=== PATIENT | male | born 1950 | race Caucasian/White ===

== ENCOUNTER 2019-02-01 13:32 | Emergency (ER) | payer MEDICARE, OTHER ==
[~2019-02-01] VITALS: Ht 182.9 cm; Wt 115.0 kg
[2019-02-01] MEDS ORDERED: LISI1TAB3 PO (13:49)
[2019-02-01] MEDS ORDERED: FINA5TAB4 PO (13:49)
[2019-02-01] MEDS ORDERED: ATOR-2 PO (13:49)
[2019-02-01] MEDS ORDERED: ASPI-496 PO (13:49)
[2019-02-01] MEDS ORDERED: AMOX-291 PO (13:49)
[2019-02-01] MEDS ORDERED: METF500T17 PO (13:49)
[2019-02-01] MEDS ORDERED: TAMS-11 PO (13:49)
--- NOTE | 2019-02-01 13:53 | NUR ---
PT TO ED FOR RLQ PAIN AND R TESTICLE ENLARGEMENT AND PAIN SINCE YESTERDAY. CONNECTED TO MONITORS. VSS. PA ASSESSMETN COMPLETE. AWAITING ORDERS. NO NEEDS AT THIS TIME. [facility]
[2019-02-01] MEDS ORDERED: SODIUM CHLORIDE FLUSH 10ML SYR IVF ONE (14:00)
[2019-02-01 14:09] LABS: BASOPHILS # (AUTO) 0.03 x10^3/uL (0-0.1); BASOPHILS % (AUTO) 0 % (0-1); EOSINOPHILS # (AUTO) 0.06 x10^3/uL (0-0.4); EOSINOPHILS % (AUTO) 1 % (1-7); LYMPHOCYTES # (AUTO) 2.05 x10^3/uL (1-3.4); LYMPHOCYTES % (AUTO) 25 % (22-44); MD NO; MEAN CORPUSCULAR HGB CONC 34.1 g/dL (33.2-36.2); MEAN CORPUSCULAR VOLUME 87.8 fL (81-97); MEAN PLATELET VOLUME 8.7 fL (7.4-10.4); MONOCYTES # (AUTO) 0.72 x10^3/uL (0.2-0.8); MONOCYTES % (AUTO) 9 % (2-9); NEUTROPHILS % (AUTO) 66 % (42-75); PLATELET COUNT 229 x10^3/uL (130-400); RED BLOOD COUNT 5.57 x10^6/uL (4.38-5.82); RED CELL DISTRIBUTION WIDTH 13.2 % (9.4-14.8)
[2019-02-01 14:19] LABS: ALBUMIN 3.6 g/dL (3.4-5.0); ANION GAP 9 mmol/L (5-15); CALCIUM 9.2 mg/dL (8.5-10.1); CHLORIDE 107 mmol/L (98-107); CREATININE 0.95 mg/dL (0.7-1.3)
--- NOTE | 2019-02-01 14:30 | NUR ---
seo catheter in place upon arrival. ua collected from bag and sent. pt resting in room with at bedside. call light within reach. no needs at this time. awaiting ct.
[2019-02-01 14:49] LABS: CULTURE INDICATED? NO; MICROSCOPIC NOT IND
--- NOTE | 2019-02-01 16:52 | NUR ---
ALL RESULTS BACK AT THIS TIME. VSS. CALL LIGHT WITHIN REACH. NO NEEDS EXPRESSED. CHART UP FOR RECHECK.
[2019-02-01 16:53] VITALS: BP 106/52
[2019-02-01] MEDS ORDERED: OMNIPAQUE 350 MG/ML, 150 ML BOTTLE ONE (17:03)
== END 2019-02-01 17:22 | disposition home or self-care (01) ==
LOC: ED 14:50
DX: R10.31 Right lower quadrant pain (principal)
CPT/HCPCS: 36415; 74177; 80048; 81003; 82040; 85025; 99284; Q9967

== ENCOUNTER 2019-03-10 13:52 | Emergency (ER) | payer MEDICARE ==
[~2019-03-10] VITALS: Ht 182.9 cm; Wt 116.5 kg
[~2019-03-10 13:52] MED LIST: AMOX-291 PO; ASPI-496 PO; ATOR-2 PO; FINA5TAB4 PO; LISI1TAB3 PO; METF500T17 PO; TAMS-11 PO
--- NOTE | 2019-03-10 14:14 | NUR ---
PT AMBULATORY TO ROOM 27 W/ C/O LOWER ABD PAIN. PT STATES LYNN CATHETER STOPPED WORKING TODAY AT 1000. PT HAS HAD NO OUTPUT SINCE 1000 TODAY. PT STATES HE FEELS PAIN/DISTENDED. PT RESTING ON GURNEY. ERP DR. ZULUAGA AT BEDSIDE. US CMP BY DR. ZULUAGA. BLADDER NOTED TO BE DISTENDED.
--- NOTE | 2019-03-10 14:40 | NUR ---
LYNN CATHETER CHANGED. PT RICARDO WELL. PT RESTING ON JESSE. CARINA. VSS.
[2019-03-10 14:41] LABS: BASOPHILS # (AUTO) 0.01 x10^3/uL (0-0.1); BASOPHILS % (AUTO) 0 % (0-1); EOSINOPHILS # (AUTO) 0.03 x10^3/uL (0-0.4); EOSINOPHILS % (AUTO) 0 % (1-7); LYMPHOCYTES % (AUTO) 10 % (22-44); MD NO; MEAN CORPUSCULAR HEMOGLOBIN 29.4 pg (27.5-34.5); MEAN CORPUSCULAR HGB CONC 33.5 g/dL (33.2-36.2); MEAN CORPUSCULAR VOLUME 87.8 fL (81-97); MEAN PLATELET VOLUME 9.1 fL (7.4-10.4); MONOCYTES # (AUTO) 0.57 x10^3/uL (0.2-0.8); MONOCYTES % (AUTO) 5 % (2-9); NEUTROPHILS # (AUTO) 10.68 x10^3/uL (1.8-6.8); NEUTROPHILS % (AUTO) 86 % (42-75); PLATELET COUNT 235 x10^3/uL (130-400); RED BLOOD COUNT 5.73 x10^6/uL (4.38-5.82); RED CELL DISTRIBUTION WIDTH 13.3 % (9.4-14.8)
[2019-03-10 14:46] LABS: ALBUMIN 3.7 g/dL (3.4-5.0); ANION GAP 7 mmol/L (5-15); CALCIUM 9.7 mg/dL (8.5-10.1); CHLORIDE 109 mmol/L (98-107); CREATININE 0.85 mg/dL (0.7-1.3)
[2019-03-10 14:53] LABS: MICROSCOPIC AUTO
--- NOTE | 2019-03-10 14:58 | NUR ---
PT RESTING ON JESSE. CARINA. VSS. STATES MUCH IMPROVEMENT IN LOWER ABD. DENIES DISTENTION. LYNN DRAINING URINE W/O ISSUES.
[2019-03-10 15:05] LABS: CULTURE INDICATED? YES
--- NOTE | 2019-03-10 15:07 | NUR ---
PT CHART REVIEWED AND PLACED FOR RECHECK.
[2019-03-10 15:52] VITALS: BP 112/50
--- NOTE | 2019-03-10 15:52 | NUR ---
PT RESTING ON GURNEY. NADN. CHAN.
== END 2019-03-10 16:17 | disposition home or self-care (01) ==
LOC: ED 16:10
DX: T83.511A Infection and inflammatory reaction due to indwelling urethral catheter, initial encounter (principal); I10 Essential (primary) hypertension; E78.00 Pure hypercholesterolemia, unspecified; E11.9 Type 2 diabetes mellitus without complications; F17.200 Nicotine dependence, unspecified, uncomplicated
CPT/HCPCS: 36415; 51702; 80048; 81001; 82040; 85025; 87077; 87086; 87186; 99284

== ENCOUNTER → 2020-03-24 | Outpatient (CLI) | payer MEDICARE ==
[~2020-03-24] MED LIST changes: +LISI1TAB23 PO; -LISI1TAB3 PO; +MULT-717 PO
[2020-03-24 10:43] LABS: BASOPHILS # (AUTO) 0.05 x10^3/uL (0-0.1); BASOPHILS % (AUTO) 1 % (0-1); EOSINOPHILS # (AUTO) 0.02 x10^3/uL (0-0.4); EOSINOPHILS % (AUTO) 0 % (1-7); LYMPHOCYTES % (AUTO) 23 % (22-44); MD NO; MEAN CORPUSCULAR HEMOGLOBIN 30.3 pg (27.5-34.5); MEAN CORPUSCULAR HGB CONC 33.5 g/dL (33.2-36.2); MEAN CORPUSCULAR VOLUME 90.4 fL (81-97); MEAN PLATELET VOLUME 8.4 fL (7.4-10.4); MONOCYTES # (AUTO) 0.49 x10^3/uL (0.2-0.8); MONOCYTES % (AUTO) 6 % (2-9); NEUTROPHILS # (AUTO) 5.65 x10^3/uL (1.8-6.8); NEUTROPHILS % (AUTO) 70 % (42-75); PLATELET COUNT 246 x10^3/uL (130-400); RED BLOOD COUNT 5.52 x10^6/uL (4.38-5.82); RED CELL DISTRIBUTION WIDTH 13.5 % (9.4-14.8)
[2020-03-24 10:50] LABS: INTERNATIONAL NORMALIZED RATIO 0.93 (0.93-1.1); PROTHROMBIN TIME 9.9 Seconds (9.6-11.5)
[2020-03-24 10:55] LABS: ALBUMIN 3.9 g/dL (3.4-5.0); ANION GAP 5 mmol/L (5-15); CALCIUM 9.4 mg/dL (8.5-10.1); CHLORIDE 107 mmol/L (98-107)
[2020-03-24 10:59] LABS: ALANINE AMINOTRANSFERASE 27 U/L (12-78); ALKALINE PHOSPHATASE 67 U/L (45-117); BILIRUBIN,TOTAL 0.5 mg/dL (0.2-1.0); CREATININE 0.87 mg/dL (0.7-1.3); TOTAL PROTEIN 7.3 g/dL (6.4-8.2)
[2020-03-24 11:27] LABS: MICROSCOPIC AUTO
== END | disposition home or self-care (01) ==
LOC: STAR 09:34
PROVIDERS: ATTEND Urology
DX: Z01.818 Encounter for other preprocedural examination (principal); Z11.59 Encounter for screening for other viral diseases; N32.89 Other specified disorders of bladder
CPT/HCPCS: 36415; 80053; 81001; 85025; 85610; 87077; 87086; 87186; 93005; U0001

== ENCOUNTER 2020-03-28 05:23 | Day surgery (SDC) | payer MEDICARE ==
[~2020-03-28] VITALS: Ht 182.9 cm; Wt 114.2 kg
[~2020-03-28 05:23] MED LIST changes: -MULT-717 PO
[2020-03-28] MEDS ORDERED: MULT-717 PO (06:29)
[2020-03-28] MEDS ORDERED: LACTATED RINGERS 1,000 ML IV SCH (06:30)
[2020-03-28] MEDS ORDERED: CHLORHEXIDINE 15 ML UDC MM ONE (06:30)
[2020-03-28 06:31] VITALS: BP 148/75
[2020-03-28] MEDS ORDERED: FENTANYL PF 100 MCG/2ML ONE (06:50)
[2020-03-28] MEDS ORDERED: MIDAZOLAM 1 MG/ML, 2ML ONE (06:50)
[2020-03-28] MEDS ORDERED: PROPOFOL 10 MG/ML, 20ML ONE (06:50)
[2020-03-28] MEDS ORDERED: LIDOCAINE-MPF 2% ,5ML ONE (06:50)
[2020-03-28] MEDS ORDERED: HYDROcodone/APAP 7.5-325MG/15ML UDC PO PRN (07:30)
[2020-03-28] MEDS ORDERED: FENTANYL PF 100 MCG/2ML IV PRN (07:30)
[2020-03-28] MEDS ORDERED: HYDROmorphone 1 MG/ML, 1ML INJ IVPush PRN (07:30)
[2020-03-28] MEDS ORDERED: PROMETHAZINE 25 MG/ML, 1ML IVPush PRN (07:30)
[2020-03-28] MEDS ORDERED: MEPERIDINE/PF 25MG/0.5ML IVPush PRN (07:30)
[2020-03-28] MEDS ORDERED: GEMCITABINE HCL 2,000 MG in SODIUM CHLORIDE 0.9% 100 ML IS ONE (07:30)
[2020-03-28] MEDS ORDERED: CEFAZOLIN 1,000 MG ONE (07:33)
[2020-03-28] MEDS ORDERED: DEXAMETHASONE 4 MG/ML, 1ML ONE (07:33)
[2020-03-28] MEDS ORDERED: ONDANSETRON 2MG/ML, 2ML ONE (07:33)
[2020-03-28] MEDS ORDERED: OPIUM/BELLADONNA SUPP.RECT 16.2-30 MG ONE (08:16)
== END 2020-03-28 12:08 | disposition home or self-care (01) ==
LOC: OUT 05:23
PROVIDERS: ATTEND Urology
DX: D49.4 Neoplasm of unspecified behavior of bladder (principal); C67.2 Malignant neoplasm of lateral wall of bladder; N31.9 Neuromuscular dysfunction of bladder, unspecified; N31.2 Flaccid neuropathic bladder, not elsewhere classified; N40.1 Benign prostatic hyperplasia with lower urinary tract symptoms; R33.8 Other retention of urine; E11.9 Type 2 diabetes mellitus without complications; I10 Essential (primary) hypertension; E78.5 Hyperlipidemia, unspecified; E66.9 Obesity, unspecified; F17.210 Nicotine dependence, cigarettes, uncomplicated; Z68.35 Body mass index [BMI] 35.0-35.9, adult; Z79.82 Long term (current) use of aspirin; Z79.84 Long term (current) use of oral hypoglycemic drugs; Z79.899 Other long term (current) drug therapy; Z87.442 Personal history of urinary calculi; Z91.030 Bee allergy status
CPT/HCPCS: 51720; 52235; 52601; 82962; 88305; J0690; J1100; J2250; J2405; J2704; J3010; J7120; J9201

== ENCOUNTER 2020-04-17 13:38 | Emergency (ER) | payer MEDICARE ==
[~2020-04-17] VITALS: Ht 182.9 cm; Wt 114.2 kg
[~2020-04-17 13:38] MED LIST changes: +MULT-717 PO
--- NOTE | 2020-04-17 14:52 | NUR ---
Report from Savanah LEVINE. Pt resting in bed, CARINA, denies needs. Continuous heart monitor applied, BP and pulse ox are in place. All safety measures observed.
[2020-04-17] MEDS ORDERED: SODIUM CHLORIDE FLUSH 10ML SYR IVF ONE (15:00)
[2020-04-17 15:14] LABS: ALANINE AMINOTRANSFERASE 28 U/L (12-78); ALBUMIN 3.5 g/dL (3.4-5.0); ANION GAP 10 mmol/L (5-15); BASOPHILS # (AUTO) 0.03 x10^3/uL (0-0.1); BASOPHILS % (AUTO) 0 % (0-1); CALCIUM 9.1 mg/dL (8.5-10.1); CHLORIDE 105 mmol/L (98-107); CREATININE 0.89 mg/dL (0.7-1.3); EOSINOPHILS # (AUTO) 0.12 x10^3/uL (0-0.4); EOSINOPHILS % (AUTO) 1 % (1-7); LYMPHOCYTES % (AUTO) 21 % (22-44); MD NO; MEAN CORPUSCULAR HEMOGLOBIN 30.5 pg (27.5-34.5); MEAN CORPUSCULAR HGB CONC 33.9 g/dL (33.2-36.2); MEAN PLATELET VOLUME 8.4 fL (7.4-10.4); MONOCYTES % (AUTO) 8 % (2-9); NEUTROPHILS # (AUTO) 5.99 x10^3/uL (1.8-6.8); NEUTROPHILS % (AUTO) 69 % (42-75); PLATELET COUNT 383 x10^3/uL (130-400); RED BLOOD COUNT 5.22 x10^6/uL (4.38-5.82); RED CELL DISTRIBUTION WIDTH 13.2 % (9.4-14.8)
[2020-04-17 15:18] LABS: ALKALINE PHOSPHATASE 75 U/L (45-117); BILIRUBIN,TOTAL 0.3 mg/dL (0.2-1.0); TROPONIN I < 0.015 ng/mL (0.000-0.045)
--- NOTE | 2020-04-17 15:58 | NUR ---
Pt in CT at this time.
[2020-04-17] MEDS ORDERED: OMNIPAQUE 350 MG/ML, 100ML BOTTLE ONE (16:19)
[2020-04-17] MEDS ORDERED: MECLIZINE CHEWABLE 25 MG TAB PO ONE (16:30)
--- NOTE | 2020-04-17 16:44 | NUR ---
Pt resting in bed watching TV, NADN, denies needs.
--- NOTE | 2020-04-17 17:05 | NUR ---
Pt ambulatory to bathroom with steady gait.
[2020-04-17] MEDS ORDERED: MECLIZINE CHEWABLE 25 MG TAB ONE (17:39)
--- NOTE | 2020-04-17 17:44 | NUR ---
Pt medicated per MAR, denies other needs.
[2020-04-17 18:36] VITALS: BP 118/68
== END 2020-04-17 18:38 | disposition home or self-care (01) ==
LOC: ED 16:46
DX: R42 Dizziness and giddiness (principal); R51 Headache; R94.31 Abnormal electrocardiogram [ECG] [EKG]; E78.00 Pure hypercholesterolemia, unspecified; F17.200 Nicotine dependence, unspecified, uncomplicated
CPT/HCPCS: 36415; 70450; 70496; 70498; 71045; 80053; 83880; 84484; 85025; 93005; 99285; Q9967

== ENCOUNTER → 2021-07-03 | Outpatient (CLI) | payer MEDICARE ==
[~2021-07-03] MED LIST changes: +ASPI81TA45 PO; +ATOR40TA78 PO; +FURO20TA3 PO; +LISI1TAB20 PO; +PIOG1TAB30 PO
[2021-07-03 11:17] LABS: BASOPHILS % (AUTO) 1 % (0-1); EOSINOPHILS % (AUTO) 1 % (1-7); LYMPHOCYTES % (AUTO) 24 % (22-44); MEAN CORPUSCULAR HEMOGLOBIN 29.7 pg (27.5-34.5); MEAN CORPUSCULAR HGB CONC 33.5 g/dL (33.2-36.2); MEAN PLATELET VOLUME 7.9 fL (7.4-10.4); MONOCYTES % (AUTO) 7 % (2-9); NEUTROPHILS % (AUTO) 67 % (42-75); PLATELET COUNT 247 x10^3/uL (130-400); RED BLOOD COUNT 4.91 x10^6/uL (4.38-5.82); RED CELL DISTRIBUTION WIDTH 14.5 % (9.4-14.8)
[2021-07-03 11:23] LABS: MICROSCOPIC INDICATED
[2021-07-03 11:29] LABS: ALANINE AMINOTRANSFERASE 28 U/L (12-78); ALBUMIN 3.8 g/dL (3.4-5.0); ANION GAP 10 mmol/L (5-15); CALCIUM 9.4 mg/dL (8.5-10.1); CHLORIDE 104 mmol/L (98-107); CREATININE 0.76 mg/dL (0.7-1.3); INTERNATIONAL NORMALIZED RATIO 1.02 (0.93-1.1); PROTHROMBIN TIME 10.9 Seconds (9.6-11.5)
[2021-07-03 11:31] LABS: ALKALINE PHOSPHATASE 57 U/L (45-117); BILIRUBIN,TOTAL 0.7 mg/dL (0.2-1.0); TOTAL PROTEIN 7.2 g/dL (6.4-8.2)
== END | disposition home or self-care (01) ==
LOC: STAR 10:14
PROVIDERS: ATTEND Urology
DX: Z01.812 Encounter for preprocedural laboratory examination (principal); Z20.822 Contact with and (suspected) exposure to COVID-19; Z01.818 Encounter for other preprocedural examination; N32.89 Other specified disorders of bladder
CPT/HCPCS: 36415; 80053; 81001; 85025; 85610; 87077; 87086; 93005

== ENCOUNTER 2021-07-10 13:02 | Day surgery (SDC) | payer MEDICARE ==
[~2021-07-10] VITALS: Ht 182.9 cm; Wt 121.5 kg
[2021-07-10 13:30] VITALS: BP 121/74
[2021-07-10] MEDS ORDERED: CHLORHEXIDINE 15 ML UDC PO ONE (13:30)
[2021-07-10] MEDS ORDERED: LACTATED RINGERS 1,000 ML IV SCH (13:30)
[2021-07-10] MEDS ORDERED: CHLORHEXIDINE 15 ML UDC ONE (13:36)
[2021-07-10] MEDS ORDERED: SUCCINYLCHOLINE 20 MG/ML, 10ML ONE (14:48)
[2021-07-10] MEDS ORDERED: CEFAZOLIN 1,000 MG ONE (14:48)
[2021-07-10] MEDS ORDERED: ONDANSETRON 2MG/ML, 2ML ONE (14:48)
[2021-07-10] MEDS ORDERED: ROCURONIUM 10 MG/ML,10ML ONE (14:48)
[2021-07-10] MEDS ORDERED: PROPOFOL 10 MG/ML, 20ML ONE (14:48)
[2021-07-10] MEDS ORDERED: MEPERIDINE/PF 25MG/0.5ML IVPush PRN (15:00)
[2021-07-10] MEDS ORDERED: PROMETHAZINE 25 MG/ML, 1ML IV PRN (15:00)
[2021-07-10] MEDS ORDERED: hydrALAzine 20 MG/ML, 1ML IV PRN (15:00)
[2021-07-10] MEDS ORDERED: ONDANSETRON 2MG/ML, 2ML IVPush PRN (15:00)
[2021-07-10] MEDS ORDERED: DIAZEPAM 5 MG/ML, 2ML IV PRN ×2 (15:00)
[2021-07-10] MEDS ORDERED: LABETALOL 5MG/ML, 20ML IV PRN (15:00)
[2021-07-10] MEDS ORDERED: OXYcodone 5 MG/5 ML ORAL.SOL UDC PO PRN (15:00)
[2021-07-10] MEDS ORDERED: METOCLOPRAMIDE 5 MG/ML, 2ML IV PRN (15:00)
[2021-07-10] MEDS ORDERED: KETOROLAC 30 MG/1 ML IV PRN (15:00)
[2021-07-10] MEDS ORDERED: HYDROmorphone 1 MG/ML, 1ML INJ IV PRN (15:00)
[2021-07-10] MEDS ORDERED: ALBUTEROL SULFATE 2.5 MG/3 ML NPPB PRN (15:00)
[2021-07-10] MEDS ORDERED: AMPICILLIN 2 GM ONE (15:02)
[2021-07-10] MEDS ORDERED: GEMCITABINE HCL 1,000 MG in SODIUM CHLORIDE 0.9% 23.7 ML IS ONE (15:15)
[2021-07-10] MEDS ORDERED: FENTANYL PF 100 MCG/2ML ONE (15:35)
[2021-07-10] MEDS ORDERED: LORazepam 2 MG/ML, 1ML ONE (15:38)
[2021-07-10] MEDS: FENTANYL PF 100 MCG/2ML IV PRN ×2 (15:38→15:50)
[2021-07-10] MEDS ORDERED: MIDAZOLAM 1 MG/ML, 2ML ONE (15:41)
[2021-07-10] MEDS: LORazepam 2 MG/ML, 1ML IVPush PRN ×2 (15:50→16:00)
== END 2021-07-10 18:50 | disposition home or self-care (01) ==
LOC: OUT 13:02
PROVIDERS: ATTEND Urology
DX: N32.89 Other specified disorders of bladder (principal); N30.00 Acute cystitis without hematuria; N30.20 Other chronic cystitis without hematuria; I10 Essential (primary) hypertension; E11.9 Type 2 diabetes mellitus without complications; E78.5 Hyperlipidemia, unspecified; J45.909 Unspecified asthma, uncomplicated; F17.210 Nicotine dependence, cigarettes, uncomplicated; Z79.82 Long term (current) use of aspirin; Z79.899 Other long term (current) drug therapy; Z87.440 Personal history of urinary (tract) infections; Z82.49 Family history of ischemic heart disease and other diseases of the circulatory system
CPT/HCPCS: 51720; 52235; 82962; 88305; J0290; J0330; J0690; J2060; J2250; J2405; J2704; J3010; J7120

== ENCOUNTER 2021-07-15 20:54 | Emergency (ER) | payer MEDICARE ==
[~2021-07-15] VITALS: Ht 182.9 cm; Wt 122.2 kg
--- NOTE | 2021-07-15 21:26 | NUR ---
pt ambualtory to room
[2021-07-15] MEDS ORDERED: MORPHINE SULFATE 4 MG/ML, 1ML IVPush ONE (21:30)
[2021-07-15] MEDS ORDERED: ONDANSETRON 2MG/ML, 2ML IVPush ONE (21:30)
[2021-07-15] MEDS ORDERED: ONDANSETRON 2MG/ML, 2ML ONE (21:35)
[2021-07-15] MEDS ORDERED: MORPHINE SULFATE 4 MG/ML, 1ML ONE (21:36)
--- NOTE | 2021-07-15 21:44 | NUR ---
pt ambulatory to restroom with steady gait to provide UA
[2021-07-15 21:49] LABS: BASOPHILS % (AUTO) 1 % (0-1); EOSINOPHILS % (AUTO) 0 % (1-7); LYMPHOCYTES % (AUTO) 11 % (22-44); MEAN CORPUSCULAR HEMOGLOBIN 29.5 pg (27.5-34.5); MEAN CORPUSCULAR HGB CONC 33.2 g/dL (33.2-36.2); MEAN PLATELET VOLUME 8.3 fL (7.4-10.4); MONOCYTES % (AUTO) 5 % (2-9); NEUTROPHILS % (AUTO) 83 % (42-75); PLATELET COUNT 240 x10^3/uL (130-400); RED BLOOD COUNT 4.67 x10^6/uL (4.38-5.82); RED CELL DISTRIBUTION WIDTH 13.9 % (9.4-14.8)
[2021-07-15] MEDS ORDERED: OMNIPAQUE 350 MG/ML, 100ML BOTTLE ONE (22:00)
--- NOTE | 2021-07-15 22:08 | NUR ---
pt attempted to provide UA, no sample provided at this time, pt will attempt later
[2021-07-15 22:19] LABS: ANION GAP 9 mmol/L (5-15); CALCIUM 9.2 mg/dL (8.5-10.1); CHLORIDE 103 mmol/L (98-107); CREATININE 1.12 mg/dL (0.7-1.3)
[2021-07-15 23:32] LABS: MICROSCOPIC AUTO
[2021-07-15 23:39] VITALS: BP 118/50
[2021-07-16] MEDS ORDERED: CEFDINIR 300 MG CAPSULE ONE (00:09)
[2021-07-16] MEDS ORDERED: CEFDINIR 300 MG CAPSULE PO ONE (00:30)
== END 2021-07-16 00:24 | disposition home or self-care (01) ==
LOC: ED 21:00
DX: N30.01 Acute cystitis with hematuria (principal); R10.30 Lower abdominal pain, unspecified; E78.00 Pure hypercholesterolemia, unspecified
CPT/HCPCS: 36415; 74177; 80048; 81001; 85025; 87086; 96374; 96375; 99285; J2270; J2405; Q9967

== ENCOUNTER → 2021-08-03 | Outpatient (CLI) | payer MEDICARE ==
[2021-08-03 11:35] LABS: ALANINE AMINOTRANSFERASE 22 U/L (12-78); ALBUMIN 3.5 g/dL (3.4-5.0); ANION GAP 5 mmol/L (5-15); CALCIUM 8.5 mg/dL (8.5-10.1); CHLORIDE 106 mmol/L (98-107); CHOLESTEROL, TOTAL 124 mg/dL (140-239); CREATININE 0.86 mg/dL (0.7-1.3)
[2021-08-03 11:45] LABS: ALKALINE PHOSPHATASE 53 U/L (45-117); BILIRUBIN,TOTAL 0.5 mg/dL (0.2-1.0); CHOL/HDL RATIO 2.7; HDL CHOL % 37 % (26-37); HDL CHOLESTEROL (DIRECT) 46 mg/dL (40-60); LDL CHOLESTEROL,CALCULATED 54 mg/dL (54-169); LDL/HDL RATIO 1.2 (0.5-3.0); TOTAL PROTEIN 6.9 g/dL (6.4-8.2); TRIGLYCERIDES 118 mg/dL (50-200); VLDL CHOLESTEROL 24 mg/dL (0-25)
== END | disposition home or self-care (01) ==
LOC: LAB 11:03
PROVIDERS: ATTEND Family Medicine
DX: E11.9 Type 2 diabetes mellitus without complications (principal)
CPT/HCPCS: 36415; 80053; 80061; 83036; 84443